=== PATIENT | male | born 1930 ===

== ENCOUNTER 2021-08-04 07:46 | Inpatient (IN) ==
[2021-08-04] MEDS ORDERED: Dextrose 50% Syringe 50 ml 25 GM/50 ML SYRINGE IV PUSH PRN (13:29)
[2021-08-04 14:10] LABS: Urine Appearance Turbid; Urine Bilirubin Negative (Negative); Urine Blood 3+ (Negative); Urine Color Amber; Urine Glucose Negative (Negative); Urine Ketones Trace (Negative); Urine Nitrite Negative (Negative); Urine Protein 2+(100 mg/dL) (Negative); Urine Urobilinogen Negative (Negative)
[2021-08-04 14:25] LABS: Urine Bacteria Absent (Absent); Urine Red Blood Cell 3+(>10/hpf) (Absent); Urine White Blood Cell 3+(>20/hpf) (Absent); Urine Yeast Present (Absent)
[2021-08-04] MEDS: Senna TAB 8.6 mg TAB PO PRN (19:50)
[2021-08-05 07:01] LABS: ABS Eosinophils 0.1 10^3/ul (0-0.6); ABS Lymphocytes 0.7 10^3/ul (1.0-4.8); ABS Neutrophils 7.6 10^3/ul (1.5-7.7); Hematocrit 35 % (42-52); Hemoglobin 11.7 g/dL (14.0-18.0); Lymphocyte % 7.8 %; Mean Corpuscular HGB Conc 33 g/dL (31-36); Mean Corpuscular Hemoglobin 31 pg (27-31); Mean Corpuscular Volume 93 fL (80-94); Mean Platelet Volume 9.8 fL (7.4-10.4); Platelet Count 188 10^3/uL (150-450); Red Blood Count 3.78 10^6 /uL (4.18-5.48); Red Cell Distribution Width 14 % (10-15); White Blood Count 9.5 10^3/uL (3.5-10.8)
[2021-08-05 07:46] LABS: Albumin 2.8 g/dL (3.2-5.2); Albumin/Globulin Ratio 1.3 (1-3); Calcium 8.2 mg/dL (8.6-10.3); Globulin 2.1 g/dL (2-4); Potassium 4.3 mmol/L (3.5-5.0); Total Bilirubin 0.4 mg/dL (0.2-1.0); Total Protein 4.9 g/dL (6.4-8.9); eGFR CKD-EPI 86.6 (>60)
[2021-08-05] MEDS: Enoxaparin 40 MG/0.4 ML SYR SUBCUT SCH (11:02)
[2021-08-06] MEDS: Enoxaparin 40 MG/0.4 ML SYR SUBCUT SCH (10:28)
[2021-08-07] MEDS: Enoxaparin 40 MG/0.4 ML SYR SUBCUT SCH (09:26)
[2021-08-08] MEDS: Enoxaparin 40 MG/0.4 ML SYR SUBCUT SCH (08:14)
[2021-08-09] MEDS: Enoxaparin 40 MG/0.4 ML SYR SUBCUT SCH (08:41)
[2021-08-10] MEDS: Enoxaparin 40 MG/0.4 ML SYR SUBCUT SCH (08:23)
[2021-08-11] MEDS: Enoxaparin 40 MG/0.4 ML SYR SUBCUT SCH (10:07)
[2021-08-11] MEDS: Magnesium Hydroxide LIQ 30 ML UDC PO PRN (17:44)
[2021-08-11] MEDS: Senna TAB 8.6 mg TAB PO PRN (20:40)
[2021-08-12 05:40] LABS: ABS Basophils 0.1 10^3/ul (0-0.2); ABS Eosinophils 0.3 10^3/ul (0-0.6); ABS Monocytes 0.6 10^3/ul (0-0.8); ABS Neutrophils 5.1 10^3/ul (1.5-7.7); Eosinophil % 3.9 %; Hematocrit 35 % (42-52); Hemoglobin 11.3 g/dL (14.0-18.0); Mean Corpuscular HGB Conc 33 g/dL (31-36); Mean Corpuscular Hemoglobin 30 pg (27-31); Mean Corpuscular Volume 93 fL (80-94); Mean Platelet Volume 8.5 fL (7.4-10.4); Nucleated Red Blood Cells % 0.1; Platelet Count 173 10^3/uL (150-450); Red Blood Count 3.71 10^6 /uL (4.18-5.48); Red Cell Distribution Width 14 % (10-15); White Blood Count 7.1 10^3/uL (3.5-10.8)
[2021-08-12 06:29] LABS: Albumin 3.1 g/dL (3.2-5.2); Albumin/Globulin Ratio 1.5 (1-3); Calcium 8.7 mg/dL (8.6-10.3); Globulin 2.1 g/dL (2-4); Potassium 4.4 mmol/L (3.5-5.0); Total Bilirubin 0.3 mg/dL (0.2-1.0); Total Protein 5.2 g/dL (6.4-8.9); eGFR CKD-EPI 89.2 (>60)
[2021-08-12] MEDS: Enoxaparin 40 MG/0.4 ML SYR SUBCUT SCH (07:41)
[2021-08-12] MEDS: Magnesium Hydroxide LIQ 30 ML UDC PO PRN (16:26)
[2021-08-12] MEDS: Senna TAB 8.6 mg TAB PO PRN (20:46)
[2021-08-13] MEDS: Enoxaparin 40 MG/0.4 ML SYR SUBCUT SCH (07:31)
[2021-08-14] MEDS: Enoxaparin 40 MG/0.4 ML SYR SUBCUT SCH (08:02)
[2021-08-15] MEDS: Enoxaparin 40 MG/0.4 ML SYR SUBCUT SCH (09:11)
[2021-08-16] MEDS: Enoxaparin 40 MG/0.4 ML SYR SUBCUT SCH (09:36)
[2021-08-17] MEDS: Enoxaparin 40 MG/0.4 ML SYR SUBCUT SCH (08:09)
[2021-08-17 20:18] LABS: Urine Appearance Cloudy; Urine Bilirubin Negative (Negative); Urine Blood 2+ (Negative); Urine Color Yellow; Urine Glucose Negative (Negative); Urine Ketones Negative (Negative); Urine Nitrite Positive (Negative); Urine Protein Negative (Negative); Urine Specific Gravity 1.019 (1.002-1.030); Urine Urobilinogen Negative (Negative)
[2021-08-17 20:23] LABS: Urine Bacteria 2+ (Absent); Urine Red Blood Cell 2+(6-10/hpf) (Absent); Urine White Blood Cell 3+(>20/hpf) (Absent)
[2021-08-17] MEDS ORDERED: Amoxicillin/Clavul 500/125 TAB (Augmentin 500 mg tab) PO ONE (21:56)
[2021-08-18] MEDS: Amoxicillin/Clavul 500/125 TAB (Augmentin 500 mg tab) PO SCH ×2 (09:48→20:18)
[2021-08-18] MEDS: Enoxaparin 40 MG/0.4 ML SYR SUBCUT SCH (09:49)
[2021-08-19 06:40] LABS: ABS Eosinophils 0.4 10^3/ul (0-0.6); ABS Monocytes 0.8 10^3/ul (0-0.8); ABS Neutrophils 2.6 10^3/ul (1.5-7.7); Eosinophil % 8.1 %; Hematocrit 36 % (42-52); Hemoglobin 11.9 g/dL (14.0-18.0); Lymphocyte % 21.6 %; Mean Corpuscular HGB Conc 33 g/dL (31-36); Mean Corpuscular Hemoglobin 30 pg (27-31); Mean Corpuscular Volume 93 fL (80-94); Mean Platelet Volume 9.1 fL (7.4-10.4); Nucleated Red Blood Cells % 0.2; Platelet Count 202 10^3/uL (150-450); Red Blood Count 3.91 10^6 /uL (4.18-5.48); Red Cell Distribution Width 14 % (10-15); White Blood Count 4.8 10^3/uL (3.5-10.8)
[2021-08-19 07:29] LABS: Albumin 3.3 g/dL (3.2-5.2); Albumin/Globulin Ratio 1.7 (1-3); Calcium 8.8 mg/dL (8.6-10.3); Potassium 4.6 mmol/L (3.5-5.0); Total Bilirubin 0.4 mg/dL (0.2-1.0); Total Protein 5.3 g/dL (6.4-8.9); eGFR CKD-EPI 88.1 (>60)
[2021-08-19] MEDS: Enoxaparin 40 MG/0.4 ML SYR SUBCUT SCH (08:58)
[2021-08-19] MEDS: Amoxicillin/Clavul 500/125 TAB (Augmentin 500 mg tab) PO SCH (08:59)
[2021-08-20] MEDS: Enoxaparin 40 MG/0.4 ML SYR SUBCUT SCH (08:13)
[2021-08-20] MEDS: Senna TAB 8.6 mg TAB PO SCH (19:57)
[2021-08-21] MEDS: Enoxaparin 40 MG/0.4 ML SYR SUBCUT SCH (08:17)
[2021-08-21] MEDS: Senna TAB 8.6 mg TAB PO SCH (20:17)
[2021-08-22] MEDS: Enoxaparin 40 MG/0.4 ML SYR SUBCUT SCH (08:36)
[2021-08-22] MEDS: Senna TAB 8.6 mg TAB PO SCH (20:08)
[2021-08-23] MEDS: Enoxaparin 40 MG/0.4 ML SYR SUBCUT SCH (08:21)
[2021-08-23] MEDS: Senna TAB 8.6 mg TAB PO SCH (20:54)
[2021-08-24] MEDS: Enoxaparin 40 MG/0.4 ML SYR SUBCUT SCH (08:27)
[2021-08-24] MEDS: Senna TAB 8.6 mg TAB PO SCH (20:40)
[2021-08-25] MEDS: Enoxaparin 40 MG/0.4 ML SYR SUBCUT SCH (08:25)
[2021-08-25] MEDS: Senna TAB 8.6 mg TAB PO SCH (20:05)
[2021-08-26 06:48] LABS: ABS Eosinophils 0.2 10^3/ul (0-0.6); ABS Lymphocytes 1.2 10^3/ul (1.0-4.8); ABS Monocytes 0.7 10^3/ul (0-0.8); Eosinophil % 4.7 %; Hematocrit 34 % (42-52); Hemoglobin 11.2 g/dL (14.0-18.0); Lymphocyte % 23.2 %; Mean Corpuscular HGB Conc 33 g/dL (31-36); Mean Corpuscular Hemoglobin 31 pg (27-31); Mean Corpuscular Volume 94 fL (80-94); Mean Platelet Volume 8.9 fL (7.4-10.4); Nucleated Red Blood Cells % 0.1; Platelet Count 220 10^3/uL (150-450); Red Blood Count 3.63 10^6 /uL (4.18-5.48); Red Cell Distribution Width 14 % (10-15); White Blood Count 5.2 10^3/uL (3.5-10.8)
[2021-08-26 07:22] LABS: Albumin 3.2 g/dL (3.2-5.2); Albumin/Globulin Ratio 1.8 (1-3); Calcium 8.8 mg/dL (8.6-10.3); Globulin 1.8 g/dL (2-4); Total Bilirubin 0.3 mg/dL (0.2-1.0); eGFR CKD-EPI 85.6 (>60)
[2021-08-26] MEDS: Enoxaparin 40 MG/0.4 ML SYR SUBCUT SCH (09:06)
[2021-08-26 16:03] LABS: Urine Appearance Turbid; Urine Bilirubin Negative (Negative); Urine Blood 3+ (Negative); Urine Color Amber; Urine Glucose Negative (Negative); Urine Ketones Negative (Negative); Urine Nitrite Negative (Negative); Urine Protein 2+(100 mg/dL) (Negative); Urine Urobilinogen Negative (Negative)
[2021-08-26 16:10] LABS: Urine Bacteria Absent (Absent); Urine Red Blood Cell 3+(>10/hpf) (Absent); Urine White Blood Cell 3+(>20/hpf) (Absent)
[2021-08-26] MEDS: Senna TAB 8.6 mg TAB PO SCH (20:42)
[2021-08-27] MEDS: Enoxaparin 40 MG/0.4 ML SYR SUBCUT SCH (09:20)
[2021-08-27] MEDS: Senna TAB 8.6 mg TAB PO SCH (20:28)
[2021-08-28] MEDS: Enoxaparin 40 MG/0.4 ML SYR SUBCUT SCH (09:20)
[2021-08-28] MEDS: Senna TAB 8.6 mg TAB PO SCH (20:25)
[2021-08-29] MEDS: Enoxaparin 40 MG/0.4 ML SYR SUBCUT SCH (08:01)
[2021-08-29] MEDS: Senna TAB 8.6 mg TAB PO SCH (20:14)
[2021-08-30] MEDS: Enoxaparin 40 MG/0.4 ML SYR SUBCUT SCH (08:05)
[2021-08-30] MEDS: Senna TAB 8.6 mg TAB PO SCH (20:37)
[2021-08-31] MEDS: Enoxaparin 40 MG/0.4 ML SYR SUBCUT SCH (08:12)
[2021-08-31] MEDS: Senna TAB 8.6 mg TAB PO SCH (20:23)
[2021-09-01] MEDS: Enoxaparin 40 MG/0.4 ML SYR SUBCUT SCH (08:09)
[2021-09-01] MEDS: Senna TAB 8.6 mg TAB PO SCH (20:47)
[2021-09-02 06:49] LABS: ABS Basophils 0.1 10^3/ul (0-0.2); ABS Eosinophils 0.3 10^3/ul (0-0.6); ABS Lymphocytes 1.4 10^3/ul (1.0-4.8); Eosinophil % 3.6 %; Hematocrit 35 % (42-52); Hemoglobin 11.4 g/dL (14.0-18.0); Lymphocyte % 18.6 %; Mean Corpuscular HGB Conc 33 g/dL (31-36); Mean Corpuscular Hemoglobin 31 pg (27-31); Mean Corpuscular Volume 93 fL (80-94); Mean Platelet Volume 9.5 fL (7.4-10.4); Platelet Count 177 10^3/uL (150-450); Red Blood Count 3.72 10^6 /uL (4.18-5.48); Red Cell Distribution Width 14 % (10-15); White Blood Count 7.8 10^3/uL (3.5-10.8)
[2021-09-02 07:25] LABS: Albumin 3.1 g/dL (3.2-5.2); Albumin/Globulin Ratio 1.6 (1-3); Calcium 8.7 mg/dL (8.6-10.3); Total Bilirubin 0.4 mg/dL (0.2-1.0); Total Protein 5.1 g/dL (6.4-8.9); eGFR CKD-EPI 90.5 (>60)
[2021-09-02] MEDS: Enoxaparin 40 MG/0.4 ML SYR SUBCUT SCH (09:46)
[2021-09-02] MEDS: Senna TAB 8.6 mg TAB PO SCH (20:52)
[2021-09-03] MEDS: Enoxaparin 40 MG/0.4 ML SYR SUBCUT SCH (09:36)
[2021-09-03] MEDS: Senna TAB 8.6 mg TAB PO SCH (21:42)
[2021-09-04] MEDS: Enoxaparin 40 MG/0.4 ML SYR SUBCUT SCH (09:10)
[2021-09-04] MEDS: Senna TAB 8.6 mg TAB PO SCH (20:44)
[2021-09-05] MEDS: Enoxaparin 40 MG/0.4 ML SYR SUBCUT SCH (09:47)
[2021-09-05] MEDS: Senna TAB 8.6 mg TAB PO SCH (20:07)
[2021-09-06] MEDS: Enoxaparin 40 MG/0.4 ML SYR SUBCUT SCH (10:00)
[2021-09-06] MEDS: Nystatin TOP POWDER 15 GM BTL TOPICAL SCH ×2 (10:03→21:17)
[2021-09-06 11:03] LABS: Urine Appearance Cloudy; Urine Bilirubin Negative (Negative); Urine Blood 3+ (Negative); Urine Color Yellow; Urine Glucose Negative (Negative); Urine Ketones Negative (Negative); Urine Nitrite Positive (Negative); Urine Protein 1+(30 mg/dL) (Negative); Urine Specific Gravity 1.017 (1.002-1.030); Urine Urobilinogen Negative (Negative)
[2021-09-06 11:17] LABS: Urine Bacteria 1+ (Absent); Urine Red Blood Cell 3+(>10/hpf) (Absent); Urine Squamous Epithelial Cell Present (Absent); Urine White Blood Cell 3+(>20/hpf) (Absent)
[2021-09-06] MEDS: Senna TAB 8.6 mg TAB PO SCH (21:16)
[2021-09-07] MEDS: Enoxaparin 40 MG/0.4 ML SYR SUBCUT SCH (10:53)
[2021-09-07] MEDS: Nystatin TOP POWDER 15 GM BTL TOPICAL SCH ×2 (10:57→20:39)
[2021-09-07] MEDS: Senna TAB 8.6 mg TAB PO SCH (20:36)
[2021-09-07] MEDS ORDERED: Amoxicillin/Clavul 500/125 TAB (Augmentin 500 mg tab) PO ONE (21:57)
[2021-09-08] MEDS: Enoxaparin 40 MG/0.4 ML SYR SUBCUT SCH (09:04)
[2021-09-08] MEDS: Amoxicillin/Clavul 500/125 TAB (Augmentin 500 mg tab) PO SCH ×2 (09:04→20:02)
[2021-09-08] MEDS: Nystatin TOP POWDER 15 GM BTL TOPICAL SCH ×2 (09:07→20:03)
[2021-09-08] MEDS: Senna TAB 8.6 mg TAB PO SCH (20:02)
[2021-09-09] MEDS: Amoxicillin/Clavul 500/125 TAB (Augmentin 500 mg tab) PO SCH ×2 (09:35→20:41)
[2021-09-09] MEDS: Nystatin TOP POWDER 15 GM BTL TOPICAL SCH ×2 (09:36→20:40)
[2021-09-09] MEDS: Enoxaparin 40 MG/0.4 ML SYR SUBCUT SCH (09:36)
[2021-09-09] MEDS: Senna TAB 8.6 mg TAB PO SCH (20:40)
[2021-09-10] MEDS: Enoxaparin 40 MG/0.4 ML SYR SUBCUT SCH (08:18)
[2021-09-10] MEDS: Amoxicillin/Clavul 500/125 TAB (Augmentin 500 mg tab) PO SCH ×2 (08:21→20:29)
[2021-09-10] MEDS: Nystatin TOP POWDER 15 GM BTL TOPICAL SCH ×2 (08:24→20:35)
[2021-09-10] MEDS: Senna TAB 8.6 mg TAB PO SCH (20:31)
[2021-09-11] MEDS: Amoxicillin/Clavul 500/125 TAB (Augmentin 500 mg tab) PO SCH ×2 (10:21→20:29)
[2021-09-11] MEDS: Enoxaparin 40 MG/0.4 ML SYR SUBCUT SCH (10:27)
[2021-09-11] MEDS: Nystatin TOP POWDER 15 GM BTL TOPICAL SCH ×2 (10:27→20:30)
[2021-09-11] MEDS: Senna TAB 8.6 mg TAB PO SCH (20:30)
[2021-09-12] MEDS: Enoxaparin 40 MG/0.4 ML SYR SUBCUT SCH (09:24)
[2021-09-12] MEDS: Amoxicillin/Clavul 500/125 TAB (Augmentin 500 mg tab) PO SCH ×2 (09:25→20:25)
[2021-09-12] MEDS: Nystatin TOP POWDER 15 GM BTL TOPICAL SCH ×2 (12:12→20:25)
[2021-09-12] MEDS: Senna TAB 8.6 mg TAB PO SCH (20:25)
[2021-09-13 05:51] LABS: ABS Basophils 0.1 10^3/ul (0-0.2); ABS Eosinophils 0.5 10^3/ul (0-0.6); ABS Lymphocytes 1.6 10^3/ul (1.0-4.8); ABS Monocytes 0.6 10^3/ul (0-0.8); ABS Neutrophils 3.6 10^3/ul (1.5-7.7); Eosinophil % 7.3 %; Hematocrit 35 % (42-52); Hemoglobin 11.4 g/dL (14.0-18.0); Lymphocyte % 25.9 %; Mean Corpuscular HGB Conc 33 g/dL (31-36); Mean Corpuscular Hemoglobin 30 pg (27-31); Mean Corpuscular Volume 92 fL (80-94); Mean Platelet Volume 8.7 fL (7.4-10.4); Platelet Count 237 10^3/uL (150-450); Red Blood Count 3.77 10^6 /uL (4.18-5.48); Red Cell Distribution Width 14 % (10-15); White Blood Count 6.3 10^3/uL (3.5-10.8)
[2021-09-13 06:15] LABS: Albumin 3.2 g/dL (3.2-5.2); Albumin/Globulin Ratio 1.7 (1-3); Calcium 8.7 mg/dL (8.6-10.3); Globulin 1.9 g/dL (2-4); Total Bilirubin 0.3 mg/dL (0.2-1.0); Total Protein 5.1 g/dL (6.4-8.9); eGFR CKD-EPI 91.8 (>60)
[2021-09-13] MEDS: Amoxicillin/Clavul 500/125 TAB (Augmentin 500 mg tab) PO SCH (08:13)
[2021-09-13] MEDS: Enoxaparin 40 MG/0.4 ML SYR SUBCUT SCH (08:16)
[2021-09-13] MEDS: Nystatin TOP POWDER 15 GM BTL TOPICAL SCH ×2 (08:16→22:09)
[2021-09-13] MEDS: Senna TAB 8.6 mg TAB PO SCH (20:26)
[2021-09-14 04:19] VITALS: BP 140/84
[2021-09-14] MEDS: Enoxaparin 40 MG/0.4 ML SYR SUBCUT SCH (08:38)
[2021-09-14] MEDS: Nystatin TOP POWDER 15 GM BTL TOPICAL SCH (10:10)
== END 2021-09-14 12:07 | disposition home health service (06) | DRG 52 ==
LOC: PMRU 12:33
PROVIDERS: ADMIT Physical Medicine & Rehabilitation; ATTEND Physical Medicine & Rehabilitation

== ENCOUNTER 2021-11-03 06:59 | Inpatient (IN) ==
[2021-11-03] MEDS ORDERED: Dextrose 50% Syringe 50 ml 25 GM/50 ML SYRINGE IV PUSH PRN (13:02)
[2021-11-03 13:25] LABS: Urine Appearance Cloudy; Urine Bilirubin Negative (Negative); Urine Color Yellow; Urine Glucose Negative (Negative); Urine Ketones Negative (Negative)
[2021-11-03 13:26] LABS: Urine Nitrite Negative (Negative); Urine Protein Negative (Negative); Urine Urobilinogen 0.2 (Negative) (Negative); Urine pH 5.5 (5.0-9.0)
[2021-11-03 13:32] LABS: Urine Bacteria Absent (Absent); Urine Red Blood Cell 3+(>10/hpf) (Absent); Urine White Blood Cell 3+(>20/hpf) (Absent); Urine Yeast Present (Absent)
[2021-11-03 13:37] LABS: Urine Blood Trace (Lysed) (Negative)
[2021-11-03] MEDS: Aspirin EC 81 mg TAB.EC (enteric coated) PO SCH (21:01)
[2021-11-03] MEDS: Heparin 5000 UNITS/ML 1 mL VIAL SUBCUT SCH (21:02)
[2021-11-03] MEDS: TROSPIUM 20 MG PO SCH (21:04)
[2021-11-04 06:54] LABS: ABS Lymphocytes 0.7 10^3/ul (1.0-4.8); ABS Monocytes 0.6 10^3/ul (0-0.8); ABS Neutrophils 5.7 10^3/ul (1.5-7.7); Eosinophil % 0.2 %; Hematocrit 34 % (42-52); Hemoglobin 11.4 g/dL (14.0-18.0); Lymphocyte % 9.5 %; Mean Corpuscular HGB Conc 34 g/dL (31-36); Mean Corpuscular Hemoglobin 30 pg (27-31); Mean Corpuscular Volume 89 fL (80-94); Mean Platelet Volume 9.3 fL (7.4-10.4); Platelet Count 258 10^3/uL (150-450); Red Cell Distribution Width 14 % (10-15)
[2021-11-04 07:11] LABS: Albumin 2.9 g/dL (3.2-5.2); Albumin/Globulin Ratio 1.5 (1-3); Calcium 8.9 mg/dL (8.6-10.3); Total Bilirubin 0.3 mg/dL (0.2-1.0); Total Protein 4.9 g/dL (6.4-8.9); eGFR CKD-EPI 89.7 (>60)
[2021-11-04] MEDS: Heparin 5000 UNITS/ML 1 mL VIAL SUBCUT SCH ×2 (08:19→20:11)
[2021-11-04] MEDS: TROSPIUM 20 MG PO SCH ×2 (08:21→20:44)
[2021-11-04] MEDS: Aspirin EC 81 mg TAB.EC (enteric coated) PO SCH (20:11)
[2021-11-05] MEDS: Heparin 5000 UNITS/ML 1 mL VIAL SUBCUT SCH ×2 (07:45→21:11)
[2021-11-05] MEDS: TROSPIUM 20 MG PO SCH ×2 (07:55→21:12)
[2021-11-05] MEDS: Senna TAB 8.6 mg TAB PO PRN (21:11)
[2021-11-05] MEDS: Aspirin EC 81 mg TAB.EC (enteric coated) PO SCH (21:12)
[2021-11-06] MEDS: Heparin 5000 UNITS/ML 1 mL VIAL SUBCUT SCH ×2 (08:15→20:23)
[2021-11-06] MEDS: TROSPIUM 20 MG PO SCH ×2 (10:56→20:24)
[2021-11-06] MEDS: Aspirin EC 81 mg TAB.EC (enteric coated) PO SCH (20:24)
[2021-11-07] MEDS: Heparin 5000 UNITS/ML 1 mL VIAL SUBCUT SCH ×2 (10:02→20:45)
[2021-11-07] MEDS: TROSPIUM 20 MG PO SCH ×2 (10:06→20:47)
[2021-11-07] MEDS: Aspirin EC 81 mg TAB.EC (enteric coated) PO SCH (20:46)
[2021-11-08] MEDS: Heparin 5000 UNITS/ML 1 mL VIAL SUBCUT SCH ×2 (09:18→20:01)
[2021-11-08] MEDS: TROSPIUM 20 MG PO SCH ×2 (09:22→19:52)
[2021-11-08] MEDS: Aspirin EC 81 mg TAB.EC (enteric coated) PO SCH (20:00)
[2021-11-09] MEDS: TROSPIUM 20 MG PO SCH ×2 (08:30→21:03)
[2021-11-09] MEDS: Heparin 5000 UNITS/ML 1 mL VIAL SUBCUT SCH ×2 (08:30→21:09)
[2021-11-09] MEDS: Senna TAB 8.6 mg TAB PO PRN (21:03)
[2021-11-09] MEDS: Aspirin EC 81 mg TAB.EC (enteric coated) PO SCH (21:04)
[2021-11-10] MEDS: TROSPIUM 20 MG PO SCH ×2 (08:57→20:36)
[2021-11-10] MEDS: Heparin 5000 UNITS/ML 1 mL VIAL SUBCUT SCH ×2 (08:57→20:36)
[2021-11-10] MEDS: Aspirin EC 81 mg TAB.EC (enteric coated) PO SCH (20:37)
[2021-11-11 06:55] LABS: ABS Eosinophils 0.1 10^3/ul (0-0.6); Eosinophil % 0.8 %; Hematocrit 40 % (42-52); Lymphocyte % 9.5 %; Mean Corpuscular HGB Conc 33 g/dL (31-36); Mean Corpuscular Hemoglobin 31 pg (27-31); Mean Corpuscular Volume 95 fL (80-94); Nucleated Red Blood Cells % 0.1; Platelet Count 209 10^3/uL (150-450); Red Blood Count 4.19 10^6 /uL (4.18-5.48); Red Cell Distribution Width 16 % (10-15)
[2021-11-11 06:59] LABS: Albumin 3.2 g/dL (3.2-5.2); CO2 Carbon Dioxide 27 mmol/L (22-32); Calcium 8.9 mg/dL (8.6-10.3); Chloride 103 mmol/L (101-111); Sodium 138 mmol/L (135-145)
[2021-11-11 07:05] LABS: ALT 12 U/L (7-52); Albumin/Globulin Ratio 1.5 (1-3); Alkaline Phosphatase 50 U/L (35-149); Blood Urea Nitrogen 19 mg/dL (6-24); Globulin 2.1 g/dL (2-4); Glucose 92 mg/dL (70-100); Total Protein 5.3 g/dL (6.4-8.9); eGFR CKD-EPI 87.7 (>60)
[2021-11-11 07:32] LABS: Anion Gap 8 mmol/L (2-11)
[2021-11-11] MEDS: TROSPIUM 20 MG PO SCH ×2 (08:50→20:39)
[2021-11-11] MEDS: Heparin 5000 UNITS/ML 1 mL VIAL SUBCUT SCH ×2 (08:51→20:41)
[2021-11-11] MEDS: Aspirin EC 81 mg TAB.EC (enteric coated) PO SCH (20:38)
[2021-11-12] MEDS: TROSPIUM 20 MG PO SCH ×2 (10:01→20:33)
[2021-11-12] MEDS: Heparin 5000 UNITS/ML 1 mL VIAL SUBCUT SCH ×2 (10:06→20:33)
[2021-11-12] MEDS: Aspirin EC 81 mg TAB.EC (enteric coated) PO SCH (20:34)
[2021-11-12] MEDS: Senna TAB 8.6 mg TAB PO PRN (20:49)
[2021-11-13] MEDS: TROSPIUM 20 MG PO SCH ×2 (08:49→20:12)
[2021-11-13] MEDS: Heparin 5000 UNITS/ML 1 mL VIAL SUBCUT SCH (08:49)
[2021-11-13] MEDS: Aspirin EC 81 mg TAB.EC (enteric coated) PO SCH (20:12)
[2021-11-14] MEDS: TROSPIUM 20 MG PO SCH ×2 (08:59→19:38)
[2021-11-14] MEDS: Senna TAB 8.6 mg TAB PO PRN (19:39)
[2021-11-14] MEDS ORDERED: Magnesium Hydroxide LIQ 30 ML UDC PO ONE (20:00)
[2021-11-15] MEDS: TROSPIUM 20 MG PO SCH ×2 (10:03→21:11)
[2021-11-16 06:07] LABS: ABS Eosinophils 0.2 10^3/ul (0-0.6); ABS Lymphocytes 1.5 10^3/ul (1.0-4.8); ABS Monocytes 1.2 10^3/ul (0-0.8); ABS Neutrophils 8.6 10^3/ul (1.5-7.7); Eosinophil % 1.4 %; Hematocrit 40 % (42-52); Lymphocyte % 12.9 %; Mean Corpuscular HGB Conc 33 g/dL (31-36); Mean Corpuscular Hemoglobin 30 pg (27-31); Mean Corpuscular Volume 91 fL (80-94); Mean Platelet Volume 9.9 fL (7.4-10.4); Platelet Count 187 10^3/uL (150-450); Red Blood Count 4.34 10^6 /uL (4.18-5.48); Red Cell Distribution Width 16 % (10-15); White Blood Count 11.5 10^3/uL (3.5-10.8)
[2021-11-16] MEDS: TROSPIUM 20 MG PO SCH ×2 (09:11→19:27)
[2021-11-17] MEDS: TROSPIUM 20 MG PO SCH ×2 (08:17→19:26)
[2021-11-18 06:05] LABS: ABS Eosinophils 0.3 10^3/ul (0-0.6); ABS Lymphocytes 1.2 10^3/ul (1.0-4.8); ABS Neutrophils 6.5 10^3/ul (1.5-7.7); Eosinophil % 2.8 %; Hematocrit 38 % (42-52); Hemoglobin 12.5 g/dL (14.0-18.0); Lymphocyte % 13.8 %; Mean Corpuscular HGB Conc 33 g/dL (31-36); Mean Corpuscular Hemoglobin 30 pg (27-31); Mean Corpuscular Volume 91 fL (80-94); Mean Platelet Volume 9.6 fL (7.4-10.4); Platelet Count 175 10^3/uL (150-450); Red Blood Count 4.17 10^6 /uL (4.18-5.48); Red Cell Distribution Width 16 % (10-15)
[2021-11-18 06:34] LABS: Albumin 3.1 g/dL (3.2-5.2); Albumin/Globulin Ratio 1.8 (1-3); Calcium 8.7 mg/dL (8.6-10.3); Globulin 1.7 g/dL (2-4); Potassium 3.8 mmol/L (3.5-5.0); Total Bilirubin 0.7 mg/dL (0.2-1.0); Total Protein 4.8 g/dL (6.4-8.9); eGFR CKD-EPI 92.7 (>60)
[2021-11-18] MEDS: TROSPIUM 20 MG PO SCH ×2 (08:58→20:43)
[2021-11-18 11:11] LABS: Urine Appearance Cloudy; Urine Color Red
[2021-11-18 11:12] LABS: Urine Specific Gravity 1.018 (1.002-1.030)
[2021-11-18 11:31] LABS: Urine Bacteria Absent (Absent); Urine Red Blood Cell 3+(>10/hpf) (Absent); Urine White Blood Cell 3+(>20/hpf) (Absent); Urine Yeast Present (Absent)
[2021-11-18] MEDS: Senna TAB 8.6 mg TAB PO PRN (20:44)
[2021-11-19] MEDS: TROSPIUM 20 MG PO SCH ×2 (09:18→21:04)
[2021-11-20] MEDS: TROSPIUM 20 MG PO SCH ×2 (09:06→20:40)
[2021-11-20] MEDS: Magnesium Hydroxide LIQ 30 ML UDC PO PRN (16:10)
[2021-11-21] MEDS: TROSPIUM 20 MG PO SCH ×2 (09:29→21:18)
[2021-11-22] MEDS: TROSPIUM 20 MG PO SCH ×2 (08:47→21:12)
[2021-11-22] MEDS: Magnesium Hydroxide LIQ 30 ML UDC PO PRN (14:48)
[2021-11-23 06:15] LABS: ABS Eosinophils 0.3 10^3/ul (0-0.6); ABS Lymphocytes 1.3 10^3/ul (1.0-4.8); ABS Monocytes 0.7 10^3/ul (0-0.8); ABS Neutrophils 4.5 10^3/ul (1.5-7.7); Hematocrit 37 % (42-52); Hemoglobin 11.9 g/dL (14.0-18.0); Lymphocyte % 18.8 %; Mean Corpuscular HGB Conc 32 g/dL (31-36); Mean Corpuscular Hemoglobin 29 pg (27-31); Mean Corpuscular Volume 90 fL (80-94); Mean Platelet Volume 9.2 fL (7.4-10.4); Platelet Count 165 10^3/uL (150-450); Red Blood Count 4.09 10^6 /uL (4.18-5.48); Red Cell Distribution Width 16 % (10-15); White Blood Count 6.8 10^3/uL (3.5-10.8)
[2021-11-23] MEDS: TROSPIUM 20 MG PO SCH ×2 (09:47→21:11)
[2021-11-24] MEDS: TROSPIUM 20 MG PO SCH (09:40)
[2021-11-25 02:15] LABS: Urine Appearance Slightly Cloudy; Urine Bilirubin Negative (Negative); Urine Blood 3+ (Large) (Negative); Urine Color Yellow; Urine Glucose Negative (Negative); Urine Ketones Negative (Negative); Urine Nitrite Negative (Negative); Urine Protein 1+ (30 mg/dL) (Negative); Urine Urobilinogen 0.2 (Negative) (Negative); Urine pH 5.5 (5.0-9.0)
[2021-11-25 02:36] LABS: Urine Bacteria Absent (Absent); Urine Red Blood Cell 3+(>10/hpf) (Absent); Urine Squamous Epithelial Cell Present (Absent); Urine White Blood Cell 3+(>20/hpf) (Absent); Urine Yeast Present (Absent)
[2021-11-25 05:34] VITALS: BP 147/90
[2021-11-25 06:02] LABS: ABS Basophils 0.1 10^3/ul (0-0.2); ABS Eosinophils 0.4 10^3/ul (0-0.6); ABS Lymphocytes 1.4 10^3/ul (1.0-4.8); ABS Monocytes 0.7 10^3/ul (0-0.8); ABS Neutrophils 3.9 10^3/ul (1.5-7.7); Eosinophil % 5.9 %; Hematocrit 38 % (42-52); Hemoglobin 12.4 g/dL (14.0-18.0); Lymphocyte % 21.5 %; Mean Corpuscular HGB Conc 32 g/dL (31-36); Mean Corpuscular Hemoglobin 29 pg (27-31); Mean Corpuscular Volume 90 fL (80-94); Mean Platelet Volume 9.1 fL (7.4-10.4); Nucleated Red Blood Cells % 0.1; Platelet Count 162 10^3/uL (150-450); Red Blood Count 4.25 10^6 /uL (4.18-5.48); Red Cell Distribution Width 16 % (10-15); White Blood Count 6.4 10^3/uL (3.5-10.8)
[2021-11-25 06:20] LABS: Albumin 3.3 g/dL (3.2-5.2); Albumin/Globulin Ratio 1.8 (1-3); Calcium 8.7 mg/dL (8.6-10.3); Globulin 1.8 g/dL (2-4); Potassium 3.9 mmol/L (3.5-5.0); Total Bilirubin 0.4 mg/dL (0.2-1.0); Total Protein 5.1 g/dL (6.4-8.9); eGFR CKD-EPI 89.7 (>60)
== END 2021-11-25 14:54 | disposition home health service (06) | DRG 56 ==
LOC: PMRU 11:02
PROVIDERS: ADMIT Physical Medicine & Rehabilitation; ATTEND Physical Medicine & Rehabilitation